=== PATIENT | male | born 1985 | race Hispanic/Latino ===

== ENCOUNTER 2022-06-04 17:23 | Emergency (ER) | payer OTHER ==
[~2022-06-04] VITALS: Ht 167.6 cm; Wt 83.0 kg
[2022-06-04 17:33] VITALS: BP 109/61
[2022-06-04] MEDS: ONDANSETRON 4MG INJ IVP ONE (18:25)
[2022-06-04] MEDS: MORPHINE 4 MG SYG IVP ONE (18:25)
[2022-06-05] MEDS ORDERED: MIRT-22 PO (15:55)
[2022-06-05] MEDS ORDERED: MIDO10TA PO (15:55)
[2022-06-05] MEDS ORDERED: FURO40TA5 PO (15:55)
[2022-06-05] MEDS ORDERED: LACT10SO9 PO (15:55)
[2022-06-05] MEDS ORDERED: GABA-529 PO (15:55)
[2022-06-05] MEDS ORDERED: POTA-79 PO (15:55)
[2022-06-05] MEDS ORDERED: PANT40TA54 PO (15:55)
== END 2022-06-04 18:34 | disposition home or self-care (01) ==
LOC: EDH 17:23
DX: K74.60 Unspecified cirrhosis of liver (principal); R18.8 Other ascites
CPT/HCPCS: 99284; 96374; 96375; J2405; J2270

== ENCOUNTER 2022-06-05 06:45 | Inpatient (IN) | payer OTHER ==
[~2022-06-05] VITALS: Ht 167.6 cm; Wt 75.5 kg
[2022-06-05 08:10] LABS: HEMATOCRIT 22.9 % (42-54); MEAN CORPUSCULAR HEMOGLOBIN 24.5 pg (27.0-33.0); MEAN CORPUSCULAR HGB CONC 32.3 g/dL (32.0-36.0); MEAN CORPUSCULAR VOLUME 75.8 fL (79-99); PLATELET COUNT (AUTO) 185 K/uL (130-400); RED BLOOD CELL COUNT(AUTO) 3.02 MIL/uL (4.50-6.20); RED CELL DISTRIBUTION WIDTH 19.7 % (11.0-15.5); WHITE BLOOD COUNT (AUTO) 5.4 K/uL (4.8-10.8)
[2022-06-05 08:27] LABS: ALBUMIN 1.3 g/dL (3.5-5.0); CREATININE 2.1 mg/dL (0.5-1.5); POTASSIUM 3.2 mmol/L (3.5-5.1); TOTAL PROTEIN, SERUM 6.2 g/dL (6.0-8.3)
[2022-06-05 08:40] LABS: INR 2.24 (0.85-1.15); PROTHROMBIN TIME 23.3 SEC (9.6-11.6)
[2022-06-05 08:41] LABS: PARTIAL THROMBOPLASTIN TIME 53.6 SEC (26.3-35.5)
[2022-06-05 08:45] LABS: APPEARANCE,URINE CLEAR (CLEAR); BILIRUBIN,URINE MODERATE mg/dL (NEGATIVE); COLOR,URINE DARK YELLOW (YELLOW); GLUCOSE, URINE (UA) NEGATIVE (NEGATIVE); KETONES,URINE 5 mg/dL (NEGATIVE); LEUKOCYTE ESTERASE ,URINE NEGATIVE Leu/uL (NEGATIVE); NITRATE,URINE NEGATIVE (NEGATIVE); OCCULT BLOOD,URINE NEGATIVE (NEGATIVE); PH,URINE 5.5 (5.0-8.0); PROTEIN,URINE TRACE mg/dL (NEGATIVE); UROBILINOGEN,URINE 0.2 mg/dL (0.2-1.0)
[2022-06-05 08:52] LABS: BACTERIA,URINE Rare /HPF (None Seen); RBC,URINE 0-1 /HPF (0-1); SQUAMOUS EPITHELIAL CELL,UR Rare /HPF (0-2)
[2022-06-05 08:54] LABS: LYMPHOCYTES % (MANUAL) 12 % (22-44); MAN.DIFF COMMENT-IMPRESSION MANUAL DIFFERENTIAL; MONOCYTES % (MANUAL) 10 % (2-9); PLATELET MORPHOLOGY COMMENT ADEQUATE; SEGMENTED NEUTROPHILS % 78 % (40-70)
[2022-06-05] MEDS ORDERED: CEFTRIAXONE 2GM VIAL IVP ONE (09:00)
[2022-06-05] MEDS ORDERED: ACETAMINOPHEN 325 MG TAB PO PRN ×2 (09:30)
[2022-06-05] MEDS ORDERED: ONDANSETRON 4MG INJ IV PRN (09:30)
[2022-06-05] MEDS ORDERED: FAMOTIDINE 20MG VIAL IV SCH (10:00)
[2022-06-05] MEDS ORDERED: PHARMACY COMMUNICATION MISC PRN (11:00)
[2022-06-05] MEDS ORDERED: AZITHROMYCIN 500MG+NS 250ML IVPB SCH (11:00)
[2022-06-05] MEDS ORDERED: CHLORDIAZEPOXIDE HCL 25 MG CAP PO PRN (11:00)
[2022-06-05] MEDS ORDERED: LORAZEPAM 2 MG/ML 1 ML VIAL IVP PRN (11:00)
[2022-06-05] MEDS: CEFTRIAXONE 2GM VIAL IVP SCH (11:30)
[2022-06-05] MEDS: LACTULOSE 20 GM/30 ML UDCUP PO SCH ×3 (11:30→23:37)
[2022-06-05] MEDS ORDERED: LIDOCAINE HCL 1% 20 ML VIAL ONE (13:03)
[2022-06-05] MEDS ORDERED: SODIUM BICARB 50MEQ 50ML VIAL 50 ML ONE (13:04)
[2022-06-05] MEDS ORDERED: ALBUMIN (HUMAN) 25% 200 ML IV ONE (13:04)
[2022-06-05] MEDS: MIDODRINE HCL 5 MG TABLET PO SCH ×2 (13:05→20:49)
[2022-06-05 14:26] LABS: CREATININE,URINE RANDOM 212 mg/dL (30-135); SODIUM,URINE RANDOM 32 mmol/l (40-220)
[2022-06-05] MEDS ORDERED: POTA-79 PO (15:55)
[2022-06-05] MEDS ORDERED: MIDO10TA PO (15:55)
[2022-06-05] MEDS ORDERED: MIRT-22 PO (15:55)
[2022-06-05] MEDS ORDERED: PANT40TA54 PO (15:55)
[2022-06-05] MEDS ORDERED: LACT10SO9 PO (15:55)
[2022-06-05] MEDS ORDERED: GABA-529 PO (15:55)
[2022-06-05] MEDS ORDERED: FURO40TA5 PO (15:55)
[2022-06-05] MEDS ORDERED: HYDROMORPHONE 0.5 MG SYG (0.5MG/0.5ML) IVP ONE (16:00)
[2022-06-05 16:42] VITALS: BP 114/60
[2022-06-05 19:21] LABS: APPEARANCE BODY FLUID CLEAR (CLEAR); COLOR,BODY FLUID YELLOW (LT YELLOW); SPECIMENTYPE,BODY FLUID PARACENTESIS; TOTAL VOLUME,BODY FLUID 8000 mL
[2022-06-05 19:22] LABS: BODY FLUID RBC 37 /cu. mm.; BODY FLUID WBC 46 /cu. mm.
[2022-06-05 20:09] VITALS: BP 95/52
[2022-06-05 20:36] LABS: BF LYMPHOCYTE 8 %; BF MONOCYTE 1 %; BF OTHER CELLS 3
[2022-06-05] MEDS: FAMOTIDINE 20MG VIAL IV SCH (20:49)
[2022-06-05] MEDS: RIFAXIMIN 550 MG TABLET PO SCH (20:49)
[2022-06-05] MEDS: CEFTRIAXONE 1G VIAL IV SCH (20:52)
[2022-06-05] MEDS ORDERED: PANTOPRAZOLE 40 MG/VIAL IVP SCH (21:00)
[2022-06-05] MEDS ORDERED: HYDROMORPHONE 0.5 MG SYG (0.5MG/0.5ML) IVP SCH (21:27)
[2022-06-05 23:59] VITALS: BP 97/48
[2022-06-06 03:40] LABS: BASOPHILS % (AUTO) 0.8 % (0.0-5.0); EOSINOPHILS % (AUTO) 0.4 % (0.0-8.0); HEMATOCRIT 24.6 % (42-54); LYMPHOCYTES % (AUTO) 40.5 % (21.0-51.0); MEAN CORPUSCULAR HEMOGLOBIN 24.6 pg (27.0-33.0); MEAN CORPUSCULAR HGB CONC 31.7 g/dL (32.0-36.0); MEAN CORPUSCULAR VOLUME 77.6 fL (79-99); NEUTROPHILS % (AUTO) 44.1 % (40.0-77.0); PLATELET COUNT (AUTO) 196 K/uL (130-400); RED BLOOD CELL COUNT(AUTO) 3.17 MIL/uL (4.50-6.20); RED CELL DISTRIBUTION WIDTH 19.9 % (11.0-15.5)
[2022-06-06 03:56] LABS: % IRON SATURATION 8.5 % (30-44)
[2022-06-06 03:57] LABS: INR 2.26 (0.85-1.15); PROTHROMBIN TIME 23.5 SEC (9.6-11.6)
[2022-06-06 03:58] LABS: PARTIAL THROMBOPLASTIN TIME 57.1 SEC (26.3-35.5)
[2022-06-06 04:02] LABS: ALBUMIN 1.8 g/dL (3.5-5.0); CREATININE 1.2 mg/dL (0.5-1.5); MAGNESIUM 1.8 mg/dL (1.80-2.40); POTASSIUM 3.2 mmol/L (3.5-5.1); TOTAL PROTEIN, SERUM 6.5 g/dL (6.0-8.3)
[2022-06-06 04:27] VITALS: BP 110/58
[2022-06-06 04:51] LABS: ERYTHROCYTE SEDIMENTATION RATE 14 MM/HR (0-15)
[2022-06-06] MEDS: LACTULOSE 20 GM/30 ML UDCUP PO SCH ×2 (05:03→11:22)
[2022-06-06] MEDS ORDERED: POTASSIUM CHLORIDE 10% ELIXIR 20 MEQ/15 ML UDCUP PO PRN (05:30)
[2022-06-06] MEDS ORDERED: MAGNESIUM 2GM PREMIX 50ML 50 ML IV PRN (05:30)
[2022-06-06] MEDS ORDERED: LIDOCAINE HCL-MPF 1% 2ML VIAL IV PRN (05:30)
[2022-06-06] MEDS ORDERED: KCL 20 MEQ ERTAB PO PRN (05:30)
[2022-06-06] MEDS ORDERED: POTASSIUM CHLORIDE 10MEQ/100ML 100 ML IV PRN (05:30)
[2022-06-06 08:55] VITALS: BP 91/48
[2022-06-06] MEDS: FAMOTIDINE 20MG VIAL IV SCH (08:58)
[2022-06-06] MEDS: MIDODRINE HCL 5 MG TABLET PO SCH (08:59)
[2022-06-06] MEDS: RIFAXIMIN 550 MG TABLET PO SCH (08:59)
[2022-06-06] MEDS: CEFTRIAXONE 1G VIAL IV SCH (08:59)
[2022-06-06] MEDS ORDERED: MULTIVITAMIN TABLET PO SCH (09:00)
[2022-06-06] MEDS ORDERED: FOLIC ACID 1 MG TABLET PO SCH (09:00)
[2022-06-06] MEDS ORDERED: FLUCONAZOLE 400 MG/NS 200 ML 200 ML IV SCH (09:00)
[2022-06-06] MEDS ORDERED: THIAMINE HCL 100 MG/ML 2ML VIAL IM SCH (09:00)
[2022-06-06] MEDS ORDERED: PREDNISONE 20 MG TABLET PO SCH (09:00)
[2022-06-06] MEDS: CEFTRIAXONE 2GM VIAL IVP SCH (09:01)
[2022-06-06] MEDS ORDERED: IRON SUCROSE COMPLEX 100 MG in 0.9%NACL 50ML 50 ML IV SCH (09:30)
[2022-06-06] MEDS ORDERED: IRON SUCROSE COMPLEX 100 MG/5 ML VIAL IVP SCH (10:00)
[2022-06-06] MEDS ORDERED: FERR-72 PO (12:58)
[2022-06-06] MEDS ORDERED: RIFA550T PO (12:58)
[2022-06-06 12:59] VITALS: BP 112/66
== END 2022-06-06 13:45 | disposition home or self-care (01) | DRG 432 ==
LOC: EDH 06:45 → EDHIP 09:24 → 2AH 16:08
PROVIDERS: ADMIT Hospitalist; ATTEND Hospitalist
PROC: 0W9G3ZZ Drainage of Peritoneal Cavity, Percutaneous Approach (ICD-10-PCS; principal; 2022-06-05)
DX: K74.60 Unspecified cirrhosis of liver (principal); J12.82 Pneumonia due to coronavirus disease 2019; U07.1 COVID-19; J96.01 Acute respiratory failure with hypoxia; R18.8 Other ascites; N17.9 Acute kidney failure, unspecified; E87.20 Acidosis, unspecified; E87.1 Hypo-osmolality and hyponatremia; E87.70 Fluid overload, unspecified; I95.89 Other hypotension; D63.8 Anemia in other chronic diseases classified elsewhere; F10.20 Alcohol dependence, uncomplicated; E83.51 Hypocalcemia; E87.6 Hypokalemia; Z91.199 Patient's noncompliance with other medical treatment and regimen due to unspecified reason
CPT/HCPCS: 36415; 49083; 71045; 80053; 81001; 82140; 82570; 83540; 83550; 83605; 83735; 84100; 84145; 84157; 84300; 84484; 85025; 85610; 85651; 85730; 86850; 86900; 86901; 87040; 87071; 87205; 87426; 87635; 87804; 89051; 93005; 96365; C1729; C9803; G0378; J0456; J0696; J1170; J1450; J1756; J3411; J3475; J3490; P9046

== ENCOUNTER 2022-07-04 14:50 | Emergency (ER) | payer OTHER ==
[~2022-07-04] VITALS: Ht 167.6 cm; Wt 81.2 kg
[~2022-07-04 14:50] MED LIST: FERR-72 PO; FURO40TA5 PO; GABA-529 PO; LACT10SO9 PO; MIDO10TA PO; MIRT-22 PO; PANT40TA54 PO; POTA-79 PO; RIFA550T PO
[2022-07-04 15:28] LABS: BASOPHILS % (AUTO) 0.2 % (0.0-5.0); EOSINOPHILS % (AUTO) 0.3 % (0.0-8.0); HEMATOCRIT 28.6 % (42-54); MEAN CORPUSCULAR HEMOGLOBIN 27.4 pg (27.0-33.0); MEAN CORPUSCULAR HGB CONC 31.5 g/dL (32.0-36.0); MEAN CORPUSCULAR VOLUME 86.9 fL (79-99); PLATELET COUNT (AUTO) 205 K/uL (130-400); RED BLOOD CELL COUNT(AUTO) 3.29 MIL/uL (4.50-6.20); RED CELL DISTRIBUTION WIDTH 25.8 % (11.0-15.5); WHITE BLOOD COUNT (AUTO) 19.8 K/uL (4.8-10.8)
[2022-07-04 15:37] LABS: POTASSIUM 4.6 mmol/L (3.5-5.1)
[2022-07-04 15:39] LABS: INR 1.65 (0.85-1.15); PROTHROMBIN TIME 17.5 SEC (9.6-11.6)
[2022-07-04 15:52] LABS: ALBUMIN 1.4 g/dL (3.5-5.0); TOTAL PROTEIN, SERUM 5.8 g/dL (6.0-8.3)
[2022-07-04] MEDS ORDERED: LIDOCAINE HCL 1% 20 ML VIAL ONE (16:12)
[2022-07-04] MEDS ORDERED: ALBUMIN (HUMAN) 25% 200 ML IV ONE (16:45)
[2022-07-04] MEDS ORDERED: LEVO750T68 PO (17:21)
[2022-07-04] MEDS ORDERED: LEVOFLOXACIN 500 MG TABLET PO ONE (17:30)
[2022-07-04 18:00] VITALS: BP 100/53
== END 2022-07-04 18:16 | disposition home or self-care (01) ==
LOC: EDH 14:50
DX: R18.8 Other ascites (principal); D72.829 Elevated white blood cell count, unspecified; E11.9 Type 2 diabetes mellitus without complications; Z79.899 Other long term (current) drug therapy
CPT/HCPCS: 49083; 99285; 96365; 80053; 85025; 85610; 36415; P9046; C1729

== ENCOUNTER 2022-07-25 07:23 | Emergency (ER) | payer OTHER ==
[~2022-07-25] VITALS: Ht 167.6 cm; Wt 77.1 kg
[~2022-07-25 07:23] MED LIST changes: +LEVO750T68 PO
[2022-07-25 07:24] VITALS: BP 122/68
== END 2022-07-25 08:04 | disposition home or self-care (01) ==
LOC: EDH 07:23
DX: K74.60 Unspecified cirrhosis of liver (principal); Z79.899 Other long term (current) drug therapy; N18.6 End stage renal disease
CPT/HCPCS: 99281

== ENCOUNTER 2022-07-25 18:36 | Inpatient (IN) | payer OTHER ==
[~2022-07-25] VITALS: Ht 167.6 cm; Wt 74.3 kg
[2022-07-25] MEDS ORDERED: 0.9% NACL 500ML IV.SOLN 500 ML IV ONE ×2 (19:30→21:30)
[2022-07-25 19:51] LABS: BASOPHILS % (AUTO) 0.3 % (0.0-5.0); EOSINOPHILS % (AUTO) 0.5 % (0.0-8.0); HEMATOCRIT 27.3 % (42-54); LYMPHOCYTES % (AUTO) 9.5 % (21.0-51.0); MEAN CORPUSCULAR HEMOGLOBIN 28.1 pg (27.0-33.0); MEAN CORPUSCULAR HGB CONC 32.6 g/dL (32.0-36.0); MEAN CORPUSCULAR VOLUME 86.1 fL (79-99); MONOCYTES % (AUTO) 7.5 % (3.0-13.0); NEUTROPHILS % (AUTO) 81.7 % (40.0-77.0); PLATELET COUNT (AUTO) 107 K/uL (130-400); RED BLOOD CELL COUNT(AUTO) 3.17 MIL/uL (4.50-6.20); RED CELL DISTRIBUTION WIDTH 22.4 % (11.0-15.5); WHITE BLOOD COUNT (AUTO) 13.2 K/uL (4.8-10.8)
[2022-07-25] MEDS ORDERED: FAMOTIDINE 20MG VIAL IV ONE (20:00)
[2022-07-25] MEDS ORDERED: ONDANSETRON 4MG INJ IVP ONE (20:00)
[2022-07-25] MEDS ORDERED: MORPHINE 2 MG SYG IVP ONE (20:00)
[2022-07-25 20:04] LABS: CREATININE 2.7 mg/dL (0.5-1.5); POTASSIUM 3.3 mmol/L (3.5-5.1)
[2022-07-25 20:17] LABS: ALBUMIN 2.2 g/dL (3.5-5.0)
[2022-07-25 20:32] LABS: APPEARANCE,URINE CLOUDY (CLEAR); BILIRUBIN,URINE 3 mg/dL (NEGATIVE); COLOR,URINE DARK-YELLOW (YELLOW); GLUCOSE, URINE (UA) NEGATIVE (NEGATIVE); KETONES,URINE NEGATIVE (NEGATIVE); LEUKOCYTE ESTERASE ,URINE NEGATIVE Leu/uL (NEGATIVE); NITRATE,URINE NEGATIVE (NEGATIVE); OCCULT BLOOD,URINE NEGATIVE (NEGATIVE); PH,URINE 5.5 (5.0-8.0); PROTEIN,URINE NEGATIVE (NEGATIVE); UROBILINOGEN,URINE 0.2 mg/dL (0.2-1.0)
[2022-07-25 20:42] LABS: MUCUS,URINE RARE LPF (None Seen); RBC,URINE 0-1 /HPF (0-1); SQUAMOUS EPITHELIAL CELL,UR RARE /HPF (0-2)
[2022-07-25 20:46] LABS: TOTAL PROTEIN, SERUM 5.6 g/dL (6.0-8.3)
[2022-07-25] MEDS ORDERED: LACTULOSE 20 GM/30 ML UDCUP PR SCH (21:00)
[2022-07-25] MEDS ORDERED: HYDROMORPHONE 0.5 MG SYG (0.5MG/0.5ML) IV PRN (21:30)
[2022-07-25] MEDS ORDERED: ACETAMINOPHEN 325 MG TAB PO PRN (21:30)
[2022-07-25] MEDS ORDERED: HYDROCODONE/ACETAMINOPHEN 5/325 MG TAB PO PRN (21:30)
[2022-07-25] MEDS ORDERED: ALPRAZOLAM 0.5 MG TABLET PO PRN (22:00)
[2022-07-26] MEDS: LACTULOSE 20 GM/30 ML UDCUP PO SCH ×5 (00:23→23:42)
[2022-07-26 00:30] VITALS: BP 113/68
[2022-07-26] MEDS: ONDANSETRON 4MG INJ IV PRN ×2 (01:14→17:17)
[2022-07-26 04:00] VITALS: BP 95/61
[2022-07-26 05:05] LABS: BASOPHILS % (AUTO) 0.3 % (0.0-5.0); EOSINOPHILS % (AUTO) 0.5 % (0.0-8.0); HEMATOCRIT 23.8 % (42-54); LYMPHOCYTES % (AUTO) 11.8 % (21.0-51.0); MEAN CORPUSCULAR HEMOGLOBIN 27.8 pg (27.0-33.0); MEAN CORPUSCULAR HGB CONC 32.4 g/dL (32.0-36.0); MEAN CORPUSCULAR VOLUME 85.9 fL (79-99); MONOCYTES % (AUTO) 8.3 % (3.0-13.0); NEUTROPHILS % (AUTO) 78.5 % (40.0-77.0); PLATELET COUNT (AUTO) 81 K/uL (130-400); RED BLOOD CELL COUNT(AUTO) 2.77 MIL/uL (4.50-6.20); RED CELL DISTRIBUTION WIDTH 22.4 % (11.0-15.5); WHITE BLOOD COUNT (AUTO) 10.9 K/uL (4.8-10.8)
[2022-07-26 05:16] LABS: INR 2.21 (0.85-1.15)
[2022-07-26 05:17] LABS: PARTIAL THROMBOPLASTIN TIME 61.5 SEC (26.3-35.5)
[2022-07-26 05:22] LABS: CREATININE 2.6 mg/dL (0.5-1.5); MAGNESIUM 1.9 mg/dL (1.80-2.40); PHOSPHORUS 4.6 mg/dL (2.5-4.9)
[2022-07-26 05:30] LABS: POTASSIUM 2.9 mmol/L (3.5-5.1)
[2022-07-26] MEDS ORDERED: POTASSIUM CHLORIDE 10% ELIXIR 20 MEQ/15 ML UDCUP PO PRN (07:00)
[2022-07-26] MEDS ORDERED: POTASSIUM CHLORIDE 20MEQ/100ML 100 ML IV PRN (07:00)
[2022-07-26] MEDS ORDERED: LIDOCAINE HCL-MPF 1% 2ML VIAL IV PRN ×2 (07:00→15:00)
[2022-07-26] MEDS: KCL 20 MEQ ERTAB PO PRN ×3 (07:30→16:21)
[2022-07-26 08:00] VITALS: BP 100/56
[2022-07-26] MEDS: MIDODRINE HCL 5 MG TABLET PO SCH ×3 (09:00→21:00)
[2022-07-26] MEDS ORDERED: LACTULOSE 20 GM/30 ML UDCUP PR ONE (09:00)
[2022-07-26] MEDS: PANTOPRAZOLE 40 MG TAB DR PO SCH (09:34)
[2022-07-26 11:10] VITALS: BP 99/57
[2022-07-26] MEDS ORDERED: POTASSIUM CHLORIDE 10MEQ/100ML 100 ML IV PRN (15:00)
[2022-07-26 15:35] VITALS: BP 117/54
[2022-07-26 15:37] LABS: CREATININE 2.7 mg/dL (0.5-1.5); POTASSIUM 3.1 mmol/L (3.5-5.1)
[2022-07-26 20:00] VITALS: BP 111/57
[2022-07-27] VITALS (15 sets, daily range): BP systolic 81–110; BP diastolic 34–66
[2022-07-27] MEDS: LACTULOSE 20 GM/30 ML UDCUP PO SCH ×5 (05:33→20:52)
[2022-07-27 05:49] LABS: BASOPHILS % (AUTO) 0.5 % (0.0-5.0); EOSINOPHILS % (AUTO) 0.8 % (0.0-8.0); HEMATOCRIT 24.1 % (42-54); LYMPHOCYTES % (AUTO) 12.9 % (21.0-51.0); MEAN CORPUSCULAR HEMOGLOBIN 28.2 pg (27.0-33.0); MEAN CORPUSCULAR HGB CONC 33.2 g/dL (32.0-36.0); MEAN CORPUSCULAR VOLUME 84.9 fL (79-99); MONOCYTES % (AUTO) 8.8 % (3.0-13.0); NEUTROPHILS % (AUTO) 76.5 % (40.0-77.0); PLATELET COUNT (AUTO) 70 K/uL (130-400); RED BLOOD CELL COUNT(AUTO) 2.84 MIL/uL (4.50-6.20); WHITE BLOOD COUNT (AUTO) 10.2 K/uL (4.8-10.8)
[2022-07-27 06:02] LABS: % IRON SATURATION 55.8 % (30-44)
[2022-07-27 06:11] LABS: ALBUMIN 2.1 g/dL (3.5-5.0); CREATININE 2.6 mg/dL (0.5-1.5); MAGNESIUM 1.9 mg/dL (1.80-2.40); TOTAL PROTEIN, SERUM 5.2 g/dL (6.0-8.3)
[2022-07-27 06:14] LABS: POTASSIUM 2.9 mmol/L (3.5-5.1)
[2022-07-27 06:15] LABS: BILIRUBIN,DIRECT 17.6 mg/dL (0.0-0.3)
[2022-07-27] MEDS: KCL 20 MEQ ERTAB PO PRN ×4 (06:34→17:10)
[2022-07-27] MEDS: MIDODRINE HCL 5 MG TABLET PO SCH ×3 (09:58→20:51)
[2022-07-27] MEDS: Vitamin B Complex/Vit C/Folic Acid PO SCH (09:58)
[2022-07-27] MEDS: PANTOPRAZOLE 40 MG TAB DR PO SCH (09:58)
[2022-07-27] MEDS ORDERED: LIDOCAINE HCL 1% 20 ML VIAL ONE (11:38)
[2022-07-27] MEDS ORDERED: ALBUMIN (HUMAN) 25% 200 ML IV SCH (12:00)
[2022-07-27] MEDS: ONDANSETRON 4MG INJ IV PRN (12:37)
[2022-07-27 12:55] LABS: BASOPHILS % (AUTO) 0.2 % (0.0-5.0); EOSINOPHILS % (AUTO) 0.4 % (0.0-8.0); HEMATOCRIT 25.6 % (42-54); LYMPHOCYTES % (AUTO) 9.6 % (21.0-51.0); MEAN CORPUSCULAR HEMOGLOBIN 28.6 pg (27.0-33.0); MEAN CORPUSCULAR HGB CONC 33.6 g/dL (32.0-36.0); MONOCYTES % (AUTO) 7.9 % (3.0-13.0); NEUTROPHILS % (AUTO) 81.4 % (40.0-77.0); PLATELET COUNT (AUTO) 86 K/uL (130-400); RED BLOOD CELL COUNT(AUTO) 3.01 MIL/uL (4.50-6.20); RED CELL DISTRIBUTION WIDTH 22.1 % (11.0-15.5); WHITE BLOOD COUNT (AUTO) 12.4 K/uL (4.8-10.8)
[2022-07-27 13:43] LABS: ALBUMIN 2.2 g/dL (3.5-5.0); CREATININE 2.7 mg/dL (0.5-1.5); TOTAL PROTEIN, SERUM 5.4 g/dL (6.0-8.3)
[2022-07-27 13:58] LABS: INR 2.24 (0.85-1.15); PROTHROMBIN TIME 23.3 SEC (9.6-11.6)
[2022-07-27] MEDS: ALBUMIN (HUMAN) 25% 100 ML IV SCH ×2 (14:35→20:51)
[2022-07-27 19:31] LABS: SPECIMENTYPE,BODY FLUID ASCITES
[2022-07-27 19:32] LABS: APPEARANCE BODY FLUID CLEAR (CLEAR); BODY FLUID WBC 45 /cu. mm.; COLOR,BODY FLUID YELLOW (LT YELLOW); TOTAL VOLUME,BODY FLUID 11300 mL
[2022-07-27 19:33] LABS: BODY FLUID RBC 16 /cu. mm.
[2022-07-27] MEDS: POTASSIUM CHLORIDE 10% ELIXIR 20 MEQ/15 ML UDCUP PO PRN ×2 (20:56→22:47)
[2022-07-27 22:36] LABS: BF LYMPHOCYTE 7 %; BF MESOTHELIAL 1 %; BF MONOCYTE 6 %; BF OTHER CELLS 4
[2022-07-28] MEDS: POTASSIUM CHLORIDE 10% ELIXIR 20 MEQ/15 ML UDCUP PO PRN ×4 (01:39→18:09)
[2022-07-28] MEDS: LACTULOSE 20 GM/30 ML UDCUP PO SCH ×4 (01:40→21:22)
[2022-07-28 05:01] VITALS: BP 94/56
[2022-07-28 05:13] LABS: BASOPHILS % (AUTO) 0.5 % (0.0-5.0); EOSINOPHILS % (AUTO) 0.7 % (0.0-8.0); HEMATOCRIT 23.1 % (42-54); LYMPHOCYTES % (AUTO) 19.6 % (21.0-51.0); MEAN CORPUSCULAR HEMOGLOBIN 28.2 pg (27.0-33.0); MEAN CORPUSCULAR HGB CONC 33.3 g/dL (32.0-36.0); MEAN CORPUSCULAR VOLUME 84.6 fL (79-99); MONOCYTES % (AUTO) 9.8 % (3.0-13.0); NEUTROPHILS % (AUTO) 69.2 % (40.0-77.0); PLATELET COUNT (AUTO) 60 K/uL (130-400); RED BLOOD CELL COUNT(AUTO) 2.73 MIL/uL (4.50-6.20); RED CELL DISTRIBUTION WIDTH 21.6 % (11.0-15.5); WHITE BLOOD COUNT (AUTO) 8.3 K/uL (4.8-10.8)
[2022-07-28 05:19] LABS: INR 2.5 (0.85-1.15); PROTHROMBIN TIME 25.9 SEC (9.6-11.6)
[2022-07-28] MEDS: ALBUMIN (HUMAN) 25% 100 ML IV SCH ×3 (05:26→22:34)
[2022-07-28] MEDS: ONDANSETRON 4MG INJ IV PRN ×2 (05:33→16:28)
[2022-07-28 05:35] LABS: ALBUMIN 2.3 g/dL (3.5-5.0); CREATININE 2.2 mg/dL (0.5-1.5); MAGNESIUM 1.7 mg/dL (1.80-2.40); PHOSPHORUS 3.5 mg/dL (2.5-4.9); TOTAL PROTEIN, SERUM 4.8 g/dL (6.0-8.3)
[2022-07-28 05:50] LABS: POTASSIUM 2.9 mmol/L (3.5-5.1)
[2022-07-28 08:00] VITALS: BP 82/51
[2022-07-28] MEDS: Vitamin B Complex/Vit C/Folic Acid PO SCH (08:55)
[2022-07-28] MEDS: KCL 20 MEQ ERTAB PO PRN ×2 (08:56→12:13)
[2022-07-28] MEDS: PANTOPRAZOLE 40 MG TAB DR PO SCH (08:56)
[2022-07-28] MEDS: MIDODRINE HCL 5 MG TABLET PO SCH ×3 (08:58→21:23)
[2022-07-28 12:00] VITALS: BP 96/59
[2022-07-28 16:00] VITALS: BP 85/52
[2022-07-28 19:10] VITALS: BP 81/43
[2022-07-28 23:55] VITALS: BP 83/53
[2022-07-29] MEDS: LACTULOSE 20 GM/30 ML UDCUP PO SCH ×3 (02:41→15:24)
[2022-07-29 04:37] VITALS: BP 87/55
[2022-07-29 05:16] LABS: HEMATOCRIT 23.8 % (42-54); MEAN CORPUSCULAR HEMOGLOBIN 28.8 pg (27.0-33.0); MEAN CORPUSCULAR HGB CONC 32.4 g/dL (32.0-36.0); MEAN CORPUSCULAR VOLUME 89.1 fL (79-99); PLATELET COUNT (AUTO) 67 K/uL (130-400); RED BLOOD CELL COUNT(AUTO) 2.67 MIL/uL (4.50-6.20); RED CELL DISTRIBUTION WIDTH 22.4 % (11.0-15.5); WHITE BLOOD COUNT (AUTO) 8.3 K/uL (4.8-10.8)
[2022-07-29 05:45] LABS: ALBUMIN 2.9 g/dL (3.5-5.0); POTASSIUM 3.3 mmol/L (3.5-5.1)
[2022-07-29] MEDS: ALBUMIN (HUMAN) 25% 100 ML IV SCH (06:34)
[2022-07-29 06:40] LABS: BAND NEUTROPHILS % (MANUAL) 6 % (0-2); BASOPHILS % (MANUAL) 2 % (0-2); EOSINOPHILS % (MANUAL) 1 % (1-6); LYMPHOCYTES % (MANUAL) 8 % (22-44); MAN.DIFF COMMENT-IMPRESSION MANUAL DIFFERENTIAL; MONOCYTES % (MANUAL) 4 % (2-9); PLATELET MORPHOLOGY COMMENT DECREASED; REACTIVE LYMPHOCYTES 2 % (0-0); SEGMENTED NEUTROPHILS % 77 % (40-70)
[2022-07-29 08:00] VITALS: BP 97/58
[2022-07-29] MEDS: Vitamin B Complex/Vit C/Folic Acid PO SCH (09:03)
[2022-07-29] MEDS: MIDODRINE HCL 5 MG TABLET PO SCH ×2 (09:03→15:24)
[2022-07-29] MEDS: POTASSIUM CHLORIDE 10% ELIXIR 20 MEQ/15 ML UDCUP PO PRN ×3 (09:04→15:24)
[2022-07-29] MEDS: PANTOPRAZOLE 40 MG TAB DR PO SCH (09:04)
[2022-07-29 12:00] VITALS: BP 103/63
[2022-07-29 16:00] VITALS: BP 88/47
[2022-07-29] MEDS ORDERED: OCTREOTIDE ACETATE 100 MCG/ML AMP SQ SCH (17:00)
[2022-07-29] MEDS ORDERED: Folic Acid/Vitamin B Comp W-C PO (17:17)
[2022-07-29] MEDS ORDERED: LEVO-70 PO (17:17)
[2022-07-29] MEDS ORDERED: RIFA550T PO (17:17)
[2022-07-29] MEDS ORDERED: LACT PO (17:17)
[2022-07-29] MEDS ORDERED: PANT40TA54 PO (17:17)
[2022-07-29] MEDS ORDERED: MIDO10TA PO (17:17)
== END 2022-07-29 18:45 | disposition home or self-care (01) | DRG 432 ==
LOC: EDH 18:36 → EDHIP 21:05 → 3DH 07-26 00:26
PROVIDERS: ADMIT Hospitalist; ATTEND Hospitalist
PROC: 0W9G3ZZ Drainage of Peritoneal Cavity, Percutaneous Approach (ICD-10-PCS; principal; 2022-07-27)
DX: K74.60 Unspecified cirrhosis of liver (principal); K76.7 Hepatorenal syndrome; R18.8 Other ascites; E87.1 Hypo-osmolality and hyponatremia; E87.20 Acidosis, unspecified; I85.10 Secondary esophageal varices without bleeding; N17.9 Acute kidney failure, unspecified; Z20.822 Contact with and (suspected) exposure to COVID-19; K76.82 Hepatic encephalopathy; E86.0 Dehydration; N18.9 Chronic kidney disease, unspecified; D64.9 Anemia, unspecified; D72.829 Elevated white blood cell count, unspecified; E87.6 Hypokalemia; F41.9 Anxiety disorder, unspecified; D69.6 Thrombocytopenia, unspecified; F32.A Depression, unspecified; F10.10 Alcohol abuse, uncomplicated; K72.10 Chronic hepatic failure without coma; Z53.29 Procedure and treatment not carried out because of patient's decision for other reasons; Z82.49 Family history of ischemic heart disease and other diseases of the circulatory system; Z91.199 Patient's noncompliance with other medical treatment and regimen due to unspecified reason
CPT/HCPCS: 36415; 49083; 76705; 80048; 80053; 80076; 81001; 82140; 82435; 82565; 83540; 83550; 83735; 84100; 84132; 84145; 84484; 85025; 85610; 85730; 86850; 86900; 86901; 87040; 87071; 87088; 87205; 87635; 89051; 93005; 96365; C1729; G0378; J2354; J2405; J3490; J7040; P9046

== ENCOUNTER 2022-09-16 02:44 | Inpatient (IN) | payer OTHER ==
[~2022-09-16] VITALS: Ht 167.6 cm; Wt 70.8 kg
[2022-09-16] VITALS (28 sets, daily range): BP systolic 82–134; BP diastolic 41–84
[~2022-09-16 02:44] MED LIST changes: -FURO40TA5 PO; +Folic Acid/Vitamin B Comp W-C PO; -GABA-529 PO; +LACT PO; -LACT10SO9 PO; -LEVO750T68 PO; -MIRT-22 PO; +POTA-200 PO; -POTA-79 PO; +SODI650T PO
[2022-09-16 03:50] LABS: BASOPHILS % (AUTO) 0.5 % (0.0-5.0); LYMPHOCYTES % (AUTO) 19.9 % (21.0-51.0); MEAN CORPUSCULAR HEMOGLOBIN 33.1 pg (27.0-33.0); MEAN CORPUSCULAR HGB CONC 34.6 g/dL (32.0-36.0); MEAN CORPUSCULAR VOLUME 95.9 fL (79-99); PLATELET COUNT (AUTO) 48 K/uL (130-400); RED BLOOD CELL COUNT(AUTO) 1.69 MIL/uL (4.50-6.20); RED CELL DISTRIBUTION WIDTH 21.8 % (11.0-15.5); WHITE BLOOD COUNT (AUTO) 12.4 K/uL (4.8-10.8)
[2022-09-16 03:56] LABS: HEMATOCRIT 16.2 % (42-54)
[2022-09-16] MEDS ORDERED: CHLORDIAZEPOXIDE HCL 25 MG CAP PO PRN (04:00)
[2022-09-16] MEDS ORDERED: PHARMACY COMMUNICATION MISC PRN (04:00)
[2022-09-16] MEDS ORDERED: ACETAMINOPHEN 325 MG TAB PO PRN (04:00)
[2022-09-16] MEDS ORDERED: ALBUMIN (HUMAN) 25% 50 ML IV SCH ×3 (04:00→08:30)
[2022-09-16] MEDS ORDERED: 0.9%NACL 1000ML 1,000 ML IV SCH (04:00)
[2022-09-16] MEDS ORDERED: LORAZEPAM 2 MG/ML 1 ML VIAL IVP PRN (04:00)
[2022-09-16 04:07] LABS: ALBUMIN 3.8 g/dL (3.5-5.0); CARBON DIOXIDE 15 mmol/L (21-32); CHLORIDE 103 mmol/L (101-111); CREATININE 3.2 mg/dL (0.5-1.5); GLOMERULAR FILTR. RATE CALC 24 mL/min (>90); GLUCOSE,RANDOM 120 mg/dL (70-105); PHOSPHORUS 5.5 mg/dL (2.5-4.9); POTASSIUM 4.1 mmol/L (3.5-5.1); SODIUM SERUM 135 mmol/L (136-145)
[2022-09-16 04:26] LABS: ALANINE AMINOTRANSFERASE 31 U/L (12-78); ASPARTATE AMINOTRANSFERASE 61 U/L (10-37); LIPASE 437 U/L (114-286); TOTAL PROTEIN, SERUM 5.3 g/dL (6.0-8.3)
[2022-09-16 04:30] LABS: AMMONIA 97 umol/L (11-32); UREA NITROGEN, BLOOD 79 mg/dL (7-18)
[2022-09-16 04:45] LABS: INR 2.56 (0.85-1.15); PROTHROMBIN TIME 26.5 SEC (9.6-11.6)
[2022-09-16 04:47] LABS: PARTIAL THROMBOPLASTIN TIME 86.2 SEC (26.3-35.5)
[2022-09-16 04:59] LABS: BAND NEUTROPHILS % (MANUAL) 3 % (0-2); EOSINOPHILS % (MANUAL) 1 % (1-6); LYMPHOCYTES % (MANUAL) 11 % (22-44); MONOCYTES % (MANUAL) 7 % (2-9); SEGMENTED NEUTROPHILS % 78 % (40-70)
[2022-09-16 05:00] LABS: MAN.DIFF COMMENT-IMPRESSION MANUAL DIFFERENTIAL; PLATELET MORPHOLOGY COMMENT DECREASED
[2022-09-16 07:05] LABS: HEMATOCRIT 23.3 % (42-54)
[2022-09-16] MEDS ORDERED: PANTOPRAZOLE 40 MG/VIAL ONE (07:48)
[2022-09-16] MEDS ORDERED: ALBUMIN (HUMAN) 25% 100 ML IV ONE (07:49)
[2022-09-16] MEDS ORDERED: PANTOPRAZOLE 40 MG/VIAL IVP SCH (09:00)
[2022-09-16] MEDS ORDERED: BALSAM PERU/CASTOR OIL 60 GM TUBE TP SCH (09:00)
[2022-09-16] MEDS: PANTOPRAZOLE 40 MG/VIAL IVP SCH ×2 (09:00→20:49)
[2022-09-16] MEDS ORDERED: MIDODRINE HCL 5 MG TABLET PO SCH (09:00)
[2022-09-16] MEDS ORDERED: PHYTONADIONE 10 MG in 0.9%NACL 50ML 50 ML IVPB SCH (09:00)
[2022-09-16 09:10] LABS: APPEARANCE,URINE CLOUDY (CLEAR); BILIRUBIN,URINE 2 mg/dL (NEGATIVE); COLOR,URINE DARK-YELLOW (YELLOW); GLUCOSE, URINE (UA) NEGATIVE (NEGATIVE); KETONES,URINE NEGATIVE (NEGATIVE); LEUKOCYTE ESTERASE ,URINE 500 Leu/uL (NEGATIVE); NITRATE,URINE NEGATIVE (NEGATIVE); OCCULT BLOOD,URINE MODERATE (NEGATIVE); PH,URINE 5.5 (5.0-8.0); PROTEIN,URINE 50 mg/dL (NEGATIVE); UROBILINOGEN,URINE 0.2 mg/dL (0.2-1.0)
[2022-09-16 09:30] LABS: BACTERIA,URINE FEW /HPF (None Seen); MUCUS,URINE RARE LPF (None Seen); SQUAMOUS EPITHELIAL CELL,UR RARE /HPF (0-2); TRANSITIONAL EPI CELLS,URINE RARE /HPF (None Seen); WBC,URINE 51-100 /HPF (0-1)
[2022-09-16] MEDS ORDERED: ACETAMINOPHEN 500 MG TABLET PO PRN (09:30)
[2022-09-16] MEDS ORDERED: OCTREOTIDE ACETATE 100 MCG/ML AMP IV SCH (09:30)
[2022-09-16] MEDS ORDERED: ACETAMINOPHEN 325 MG TAB ONE (09:43)
[2022-09-16] MEDS ORDERED: ZOSYN 3.375GM+NS 50ML 50 ML IVPB ONE (09:43)
[2022-09-16] MEDS ORDERED: MIDODRINE HCL 5 MG TABLET ONE (09:43)
[2022-09-16] MEDS ORDERED: LACTULOSE 20 GM/30 ML UDCUP ONE (09:43)
[2022-09-16] MEDS ORDERED: OCTREOTIDE ACETATE 100 MCG/ML AMP ONE (09:44)
[2022-09-16] MEDS: ZOSYN 3.375GM +NS 50ML IVPB SCH ×2 (09:46→20:49)
[2022-09-16] MEDS: LACTULOSE 20 GM/30 ML UDCUP PO SCH ×3 (09:47→21:06)
[2022-09-16] MEDS: ACETAMINOPHEN 325 MG TAB PO PRN ×2 (09:48→18:44)
[2022-09-16] MEDS: OCTREOTIDE ACETATE 1,250 MCG in 0.9% NACL 250ML 250 ML IV SCH (09:51)
[2022-09-16] MEDS: RIFAXIMIN 550 MG TABLET PO SCH ×2 (09:57→20:49)
[2022-09-16] MEDS: MIDODRINE HCL 5 MG TABLET PO SCH ×2 (13:13→20:50)
[2022-09-16] MEDS: ALBUMIN (HUMAN) 25% 50 ML IV SCH ×2 (13:13→18:39)
[2022-09-16 13:46] LABS: MEAN CORPUSCULAR HEMOGLOBIN 32.2 pg (27.0-33.0); MEAN CORPUSCULAR HGB CONC 34.5 g/dL (32.0-36.0); MEAN CORPUSCULAR VOLUME 93.4 fL (79-99); RED BLOOD CELL COUNT(AUTO) 2.11 MIL/uL (4.50-6.20); WHITE BLOOD COUNT (AUTO) 10.2 K/uL (4.8-10.8)
[2022-09-16 13:51] LABS: HEMATOCRIT 19.7 % (42-54)
[2022-09-16 14:05] LABS: ABG BASE EXCESS -8.4 mmol/L (-2.0-3.0); ABG HCO3 15.7 mmol/L (21.0-28.0); ABG OXYGEN SATURATION 97.6 % (95.0-99.0); ABG PCO2 29 mmHg (35-48)
[2022-09-16] MEDS: SODIUM BICARBONATE 650 MG TAB PO SCH (20:49)
[2022-09-16] MEDS: BALSAM PERU/CASTOR OIL 60 GM TUBE TP SCH (21:04)
[2022-09-16 22:39] LABS: HEMATOCRIT 20.8 % (42-54)
[2022-09-17] VITALS (50 sets, daily range): BP systolic 94–144; BP diastolic 50–82
[2022-09-17] MEDS: ALBUMIN (HUMAN) 25% 50 ML IV SCH ×4 (01:07→19:13)
[2022-09-17] MEDS: LACTULOSE 20 GM/30 ML UDCUP PO SCH ×4 (02:05→21:02)
[2022-09-17 05:31] LABS: BASOPHILS % (AUTO) 0.7 % (0.0-5.0); HEMATOCRIT 24.2 % (42-54); MEAN CORPUSCULAR HEMOGLOBIN 31.7 pg (27.0-33.0); MEAN CORPUSCULAR HGB CONC 34.3 g/dL (32.0-36.0); MEAN CORPUSCULAR VOLUME 92.4 fL (79-99); NEUTROPHILS % (AUTO) 71.8 % (40.0-77.0); PLATELET COUNT (AUTO) 47 K/uL (130-400); RED BLOOD CELL COUNT(AUTO) 2.62 MIL/uL (4.50-6.20); RED CELL DISTRIBUTION WIDTH 20.3 % (11.0-15.5); WHITE BLOOD COUNT (AUTO) 12.2 K/uL (4.8-10.8)
[2022-09-17 05:47] LABS: CREATININE 3.1 mg/dL (0.5-1.5); MAGNESIUM 2.4 mg/dL (1.80-2.40); POTASSIUM 3.8 mmol/L (3.5-5.1)
[2022-09-17 05:49] LABS: INR 2.11 (0.85-1.15)
[2022-09-17 05:50] LABS: PARTIAL THROMBOPLASTIN TIME 73.2 SEC (26.3-35.5)
[2022-09-17 06:09] LABS: % IRON SATURATION 101.3 % (30-44)
[2022-09-17] MEDS ORDERED: PROPOFOL 10 MG/ML 20ML VIAL IV ONE (07:29)
[2022-09-17] MEDS ORDERED: SUCCINYLCHOLINE 200MG/10ML SYR ONE (07:35)
[2022-09-17] MEDS ORDERED: FENTANYL CITRATE PF 50 MCG/1 ML 2ML VIAL ONE (07:40)
[2022-09-17] MEDS ORDERED: ONDANSETRON 4MG INJ ONE (07:41)
[2022-09-17] MEDS ORDERED: EPHEDRINE SULFATE 50 MG/ML AMPULE ONE (07:42)
[2022-09-17] MEDS: ZOSYN 3.375GM +NS 50ML IVPB SCH ×2 (09:01→21:03)
[2022-09-17] MEDS: PANTOPRAZOLE 40 MG/VIAL IVP SCH ×2 (09:01→21:03)
[2022-09-17] MEDS: SODIUM BICARBONATE 650 MG TAB PO SCH ×3 (09:01→21:05)
[2022-09-17] MEDS: RIFAXIMIN 550 MG TABLET PO SCH ×2 (09:01→21:03)
[2022-09-17] MEDS: MIDODRINE HCL 5 MG TABLET PO SCH ×3 (09:01→21:03)
[2022-09-17] MEDS: BALSAM PERU/CASTOR OIL 60 GM TUBE TP SCH ×2 (09:02→21:08)
[2022-09-17] MEDS ORDERED: 0.9%NACL 1000ML 1,000 ML IV ONE (09:31)
[2022-09-17 11:10] LABS: HEMATOCRIT 23.5 % (42-54)
[2022-09-17] MEDS ORDERED: NOREPINEPHRIN 4MG/NS 250ML 250 ML IV ONE (13:52)
[2022-09-17] MEDS ORDERED: LIDOCAINE HCL MPF 1% 5ML VIAL ONE (13:55)
[2022-09-17] MEDS ORDERED: NOREPINEPHRIN 4MG/NS 250ML 250 ML IV PRN (14:30)
[2022-09-17] MEDS ORDERED: NOREPINEPHRIN 4MG/NS 250ML 250 ML IV SCH (14:30)
[2022-09-17 15:54] LABS: BODY FLUID RBC 31074 /cu. mm.; BODY FLUID WBC 258 /cu. mm.
[2022-09-17 16:04] LABS: APPEARANCE BODY FLUID CLOUDY (CLEAR); COLOR,BODY FLUID ORANGE (LT YELLOW); SPECIMENTYPE,BODY FLUID ASCITES; TOTAL VOLUME,BODY FLUID 6000 mL
[2022-09-17 16:07] LABS: BF LYMPHOCYTE 25 %; BF MONOCYTE 4 %
[2022-09-17 17:04] LABS: HEMATOCRIT 22.8 % (42-54)
[2022-09-18] VITALS (22 sets, daily range): BP systolic 106–149; BP diastolic 51–76
[2022-09-18] MEDS: ALBUMIN (HUMAN) 25% 50 ML IV SCH ×4 (01:29→17:57)
[2022-09-18] MEDS: ACETAMINOPHEN 325 MG TAB PO PRN (01:54)
[2022-09-18 03:55] LABS: BASOPHILS % (AUTO) 0.6 % (0.0-5.0); EOSINOPHILS % (AUTO) 2.5 % (0.0-8.0); HEMATOCRIT 21.3 % (42-54); LYMPHOCYTES % (AUTO) 14.8 % (21.0-51.0); MEAN CORPUSCULAR HEMOGLOBIN 31.4 pg (27.0-33.0); MEAN CORPUSCULAR HGB CONC 34.7 g/dL (32.0-36.0); MEAN CORPUSCULAR VOLUME 90.3 fL (79-99); MONOCYTES % (AUTO) 9.9 % (3.0-13.0); NEUTROPHILS % (AUTO) 71.7 % (40.0-77.0); PLATELET COUNT (AUTO) 63 K/uL (130-400); RED BLOOD CELL COUNT(AUTO) 2.36 MIL/uL (4.50-6.20); RED CELL DISTRIBUTION WIDTH 20.2 % (11.0-15.5); WHITE BLOOD COUNT (AUTO) 10.1 K/uL (4.8-10.8)
[2022-09-18] MEDS: LACTULOSE 20 GM/30 ML UDCUP PO SCH ×3 (03:55→17:57)
[2022-09-18 04:28] LABS: ALBUMIN 3.8 g/dL (3.5-5.0); MAGNESIUM 2.1 mg/dL (1.80-2.40); POTASSIUM 3.3 mmol/L (3.5-5.1); TOTAL PROTEIN, SERUM 5.3 g/dL (6.0-8.3)
[2022-09-18] MEDS: ONDANSETRON 4MG INJ IV PRN (05:19)
[2022-09-18] MEDS ORDERED: LACTULOSE 20 GM/30 ML UDCUP PO SCH (09:00)
[2022-09-18] MEDS ORDERED: LACTULOSE 20 GM/30 ML UDCUP ONE (09:20)
[2022-09-18] MEDS: RIFAXIMIN 550 MG TABLET PO SCH ×2 (09:46→21:26)
[2022-09-18] MEDS: MIDODRINE HCL 5 MG TABLET PO SCH ×3 (09:47→21:26)
[2022-09-18] MEDS: ZOSYN 3.375GM +NS 50ML IVPB SCH ×2 (09:47→21:26)
[2022-09-18] MEDS: SODIUM BICARBONATE 650 MG TAB PO SCH ×3 (09:47→21:26)
[2022-09-18] MEDS: PANTOPRAZOLE 40 MG/VIAL IVP SCH ×2 (09:47→21:26)
[2022-09-18] MEDS: BALSAM PERU/CASTOR OIL 60 GM TUBE TP SCH ×2 (09:56→21:27)
[2022-09-18 10:40] LABS: BASOPHILS % (AUTO) 0.6 % (0.0-5.0); EOSINOPHILS % (AUTO) 2.1 % (0.0-8.0); HEMATOCRIT 22.3 % (42-54); LYMPHOCYTES % (AUTO) 15.8 % (21.0-51.0); MEAN CORPUSCULAR HEMOGLOBIN 31.8 pg (27.0-33.0); MEAN CORPUSCULAR HGB CONC 34.5 g/dL (32.0-36.0); MEAN CORPUSCULAR VOLUME 92.1 fL (79-99); MONOCYTES % (AUTO) 8.8 % (3.0-13.0); PLATELET COUNT (AUTO) 60 K/uL (130-400); RED BLOOD CELL COUNT(AUTO) 2.42 MIL/uL (4.50-6.20); RED CELL DISTRIBUTION WIDTH 20.3 % (11.0-15.5); WHITE BLOOD COUNT (AUTO) 10.6 K/uL (4.8-10.8)
[2022-09-18] MEDS: OCTREOTIDE ACETATE 1,250 MCG in 0.9% NACL 250ML 250 ML IV SCH (11:11)
[2022-09-19 00:24] VITALS: BP 119/80
[2022-09-19 03:24] VITALS: BP 115/68
[2022-09-19 04:01] LABS: BASOPHILS % (AUTO) 0.7 % (0.0-5.0); EOSINOPHILS % (AUTO) 1.7 % (0.0-8.0); HEMATOCRIT 23.5 % (42-54); MEAN CORPUSCULAR HEMOGLOBIN 32.6 pg (27.0-33.0); MEAN CORPUSCULAR HGB CONC 35.7 g/dL (32.0-36.0); MEAN CORPUSCULAR VOLUME 91.1 fL (79-99); MONOCYTES % (AUTO) 7.8 % (3.0-13.0); NEUTROPHILS % (AUTO) 78.2 % (40.0-77.0); PLATELET COUNT (AUTO) 59 K/uL (130-400); RED BLOOD CELL COUNT(AUTO) 2.58 MIL/uL (4.50-6.20); RED CELL DISTRIBUTION WIDTH 20.5 % (11.0-15.5); WHITE BLOOD COUNT (AUTO) 12.1 K/uL (4.8-10.8)
[2022-09-19 04:29] LABS: ALBUMIN 3.8 g/dL (3.5-5.0); CREATININE 2.9 mg/dL (0.5-1.5); POTASSIUM 3.1 mmol/L (3.5-5.1); TOTAL PROTEIN, SERUM 5.3 g/dL (6.0-8.3)
[2022-09-19] MEDS: LACTULOSE 20 GM/30 ML UDCUP PO SCH ×4 (04:37→17:34)
[2022-09-19] MEDS: ALBUMIN (HUMAN) 25% 50 ML IV SCH ×4 (04:42→17:34)
[2022-09-19 07:36] LABS: INR 2.46 (0.85-1.15); PROTHROMBIN TIME 25.5 SEC (9.6-11.6)
[2022-09-19 07:38] LABS: PARTIAL THROMBOPLASTIN TIME 64.3 SEC (26.3-35.5)
[2022-09-19 07:59] LABS: HEMATOCRIT 24.2 % (42-54)
[2022-09-19 08:05] VITALS: BP 124/68
[2022-09-19] MEDS ORDERED: PEG 3350/NA SULF,BICARB,CL/KCL 4000 ML SOLN PO SCH (08:30)
[2022-09-19] MEDS ORDERED: KCL 20 MEQ ERTAB PO ONE (09:36)
[2022-09-19] MEDS: OCTREOTIDE ACETATE 100 MCG/ML AMP IV SCH ×2 (09:43→17:34)
[2022-09-19] MEDS: ONDANSETRON 4MG INJ IV PRN (09:43)
[2022-09-19] MEDS: RIFAXIMIN 550 MG TABLET PO SCH ×2 (09:43→21:43)
[2022-09-19] MEDS: PANTOPRAZOLE 40 MG/VIAL IVP SCH ×2 (09:43→21:43)
[2022-09-19] MEDS: ZOSYN 3.375GM +NS 50ML IVPB SCH ×2 (09:43→23:54)
[2022-09-19] MEDS: MIDODRINE HCL 5 MG TABLET PO SCH ×3 (09:44→21:43)
[2022-09-19] MEDS: SODIUM BICARBONATE 650 MG TAB PO SCH ×3 (09:44→21:42)
[2022-09-19] MEDS: BALSAM PERU/CASTOR OIL 60 GM TUBE TP SCH ×2 (09:47→21:42)
[2022-09-19 11:23] VITALS: BP 111/59
[2022-09-19 15:49] VITALS: BP 121/76
[2022-09-19] MEDS ORDERED: PHYTONADIONE 10 MG in 0.9%NACL 50ML 50 ML IVPB SCH (19:50)
[2022-09-19] MEDS ORDERED: [UNRECOGNIZED DRUG - OTHER] IJ SCH (19:50)
[2022-09-19] MEDS ORDERED: DESMOPRESSIN IJ SCH (19:50)
[2022-09-19 20:00] VITALS: BP 124/79
[2022-09-20] VITALS: BP 144/93
[2022-09-20] MEDS: ALBUMIN (HUMAN) 25% 50 ML IV SCH ×4 (01:10→18:00)
[2022-09-20] MEDS: OCTREOTIDE ACETATE 100 MCG/ML AMP IV SCH ×3 (02:04→17:00)
[2022-09-20 04:00] VITALS: BP 125/81
[2022-09-20] MEDS: LACTULOSE 20 GM/30 ML UDCUP PO SCH ×4 (06:13→18:00)
[2022-09-20] MEDS: ONDANSETRON 4MG INJ IV PRN (06:29)
[2022-09-20 07:51] LABS: HEMATOCRIT 25.3 % (42-54); MEAN CORPUSCULAR HEMOGLOBIN 32.5 pg (27.0-33.0); MEAN CORPUSCULAR HGB CONC 34.8 g/dL (32.0-36.0); MEAN CORPUSCULAR VOLUME 93.4 fL (79-99); PLATELET COUNT (AUTO) 51 K/uL (130-400); RED BLOOD CELL COUNT(AUTO) 2.71 MIL/uL (4.50-6.20); RED CELL DISTRIBUTION WIDTH 21.9 % (11.0-15.5)
[2022-09-20 08:30] VITALS: BP 117/69
[2022-09-20 08:47] LABS: CREATININE 2.8 mg/dL (0.5-1.5); POTASSIUM 3.3 mmol/L (3.5-5.1)
[2022-09-20 08:50] LABS: MAGNESIUM 1.9 mg/dL (1.80-2.40); PHOSPHORUS 4.8 mg/dL (2.5-4.9)
[2022-09-20] MEDS: SODIUM BICARBONATE 650 MG TAB PO SCH (09:00)
[2022-09-20 09:05] LABS: BAND NEUTROPHILS % (MANUAL) 2 % (0-2); BASOPHILS % (MANUAL) 2 % (0-2); LYMPHOCYTES % (MANUAL) 8 % (22-44); MAN.DIFF COMMENT-IMPRESSION MANUAL DIFFERENTIAL; MONOCYTES % (MANUAL) 2 % (2-9); SEGMENTED NEUTROPHILS % 86 % (40-70)
[2022-09-20 09:07] LABS: PLATELET MORPHOLOGY COMMENT DECREASED
[2022-09-20] MEDS: BALSAM PERU/CASTOR OIL 60 GM TUBE TP SCH (10:01)
[2022-09-20] MEDS: MIDODRINE HCL 5 MG TABLET PO SCH ×3 (10:01→21:10)
[2022-09-20] MEDS: ZOSYN 3.375GM +NS 50ML IVPB SCH ×2 (10:01→21:09)
[2022-09-20] MEDS: RIFAXIMIN 550 MG TABLET PO SCH ×2 (10:01→21:10)
[2022-09-20] MEDS: PANTOPRAZOLE 40 MG/VIAL IVP SCH ×2 (10:01→21:09)
[2022-09-20 12:38] VITALS: BP 133/85
[2022-09-20 16:51] VITALS: BP 129/78
[2022-09-20 20:24] VITALS: BP 115/76
== END 2022-09-20 23:55 | disposition hospice, inpatient (51) | DRG 441 ==
LOC: EDH 02:44 → EDHIP 03:34 → 2BH 12:06 → 2DH 09-18 14:35
PROVIDERS: ADMIT Internal Medicine; ATTEND Internal Medicine
PROC: 30233K1 Transfusion of Nonautologous Frozen Plasma into Peripheral Vein, Percutaneous Approach (ICD-10-PCS; 2022-09-16)
PROC: 30233N1 Transfusion of Nonautologous Red Blood Cells into Peripheral Vein, Percutaneous Approach (ICD-10-PCS; 2022-09-16)
PROC: 0W9G3ZZ Drainage of Peritoneal Cavity, Percutaneous Approach (ICD-10-PCS; principal; 2022-09-17)
PROC: 30233R1 Transfusion of Nonautologous Platelets into Peripheral Vein, Percutaneous Approach (ICD-10-PCS; 2022-09-17)
PROC: 06L38CZ Occlusion of Esophageal Vein with Extraluminal Device, Via Natural or Artificial Opening Endoscopic (ICD-10-PCS; 2022-09-17)
DX: K76.7 Hepatorenal syndrome (principal); E43 Unspecified severe protein-calorie malnutrition; G93.41 Metabolic encephalopathy; I85.11 Secondary esophageal varices with bleeding; N17.9 Acute kidney failure, unspecified; D62 Acute posthemorrhagic anemia; D68.9 Coagulation defect, unspecified; E87.20 Acidosis, unspecified; K92.0 Hematemesis; N30.01 Acute cystitis with hematuria; K70.31 Alcoholic cirrhosis of liver with ascites; Z20.822 Contact with and (suspected) exposure to COVID-19; K76.82 Hepatic encephalopathy; F10.20 Alcohol dependence, uncomplicated; K72.90 Hepatic failure, unspecified without coma; D69.59 Other secondary thrombocytopenia; E87.70 Fluid overload, unspecified; K06.8 Other specified disorders of gingiva and edentulous alveolar ridge; F32.A Depression, unspecified; I95.89 Other hypotension; F43.10 Post-traumatic stress disorder, unspecified; F41.9 Anxiety disorder, unspecified; R54 Age-related physical debility; I12.9 Hypertensive chronic kidney disease with stage 1 through stage 4 chronic kidney disease, or unspecified chronic kidney disease; N18.9 Chronic kidney disease, unspecified; Z53.29 Procedure and treatment not carried out because of patient's decision for other reasons; Z82.49 Family history of ischemic heart disease and other diseases of the circulatory system; Z91.199 Patient's noncompliance with other medical treatment and regimen due to unspecified reason; Z51.5 Encounter for palliative care
CPT/HCPCS: 36415; 36430; 36600; 43244; 71045; 76705; 76770; 80048; 80053; 81001; 82140; 82270; 82378; 82803; 82948; 83540; 83550; 83605; 83690; 83735; 84100; 84145; 84300; 85007; 85014; 85018; 85025; 85027; 85384; 85610; 85730; 86850; 86900; 86901; 86923; 86927; 87040; 87071; 87088; 87205; 87426; 89051; A4606; C9113; G0378; J0330; J2354; J2405; J2543; J2597; J2704; J3010; J3430; J3490; J7030; J7050; P9016; P9017; P9034; P9047